=== PATIENT | female | born 1950 | race Caucasian/White ===

== ENCOUNTER 2022-06-19 10:41 | Emergency (ER) | payer OTHER ==
--- OUTSIDE RECORDS SUMMARY | 2022-06-19 10:47 | XMS REPORT | Continuity of Care Document ---
:1950 Author Organization [facility] t Address [address] [facility] [address] [place] [address] Care Team Providers Name Role Phone Curtis Boo MD, [place] Primary Care Physician [phone] MARLIN GARCIA Attending Clinician Unavailable MARLIN GARCIA APRN Attending Clinician Unavailable SHANELLE LEE M.D. Attending Clinician Unavailable MADDI CONCEPCION, P.Kylah Attending Clinician Unavailable PACO MORAN, PMono Attending Clinician Unavailable SONIA GONZALEZ PMono Attending Clinician Unavailable YASMANY MARTINEZ PMono Attending Clinician Unavailable SERGIO MORRISON PMono Attending Clinician Unavailable MARVEL COCHRAN M.D. Attending Clinician Unavailable LESIA CHEN APRN Attending Clinician Unavailable Marvel Cochran Attending Clinician JEY ONOFRE PA-C Attending Clinician Unavailable DEXA, SCAN Attending Clinician Unavailable Maddi Concepcion Attending Clinician Unavailable Esdras Kincaid Attending Clinician Esdras Kincaid Admitting Clinician Problems Condition Condition Condition Status Onset Resolution Last Treating Co mments Source Name Details Category Date Date Treatment Clinician Date OA LE LT OA LE LT Diagnosis Active 2017-022018-05-06 Memoria HAND PAIN HAND PAIN 2-05 12:02:00 l Active 08:00: Oliver 01/20/2018 00 [facility] OA LE LT OA LE LT Diagnosis Active 2017-022018-02-26 Memoria HAND PAIN' HAND PAIN' 0-05 13:06:00 l Active 08:00: Oliver 11/20/2017 00 TI [facility] Z13.820 - Z13.820 - Diagnosis Active 2017-12-20 Memoria ENCOUNTER ENCOUNTER 11-11 15:32:00 l FOR FOR 00:01: Oliver SCREENING SCREENING 00 FOR OS FOR OS Active 11/11/2017 CHANG Oliver RADIAL FX RADIAL FX Diagnosis Active 2017-11-06 Memoria Active 11-05 09:04:00 l 11/05/2017 00:00: Ken[place] kolb [address] FALL FALL Diagnosis Active 2017-11-05 Mem oria Active 11-05 19:22:00 l 11/05/2017 00:00: [place] kolb [address] Decompensa Decompensa Disease Active 2015-02 M ethodi tion of tion of 0-21 st cirrhosis cirrhosis 00:00: [facility] liver of liver 00 l Chronic Chronic Disease Active 2015-02 Methodi hepatitis hepatitis 0-21 st C w/ SVR C w/ SVR 00:00: Hospit a 00 l Portal Portal Disease Active 2015-02 Methodi hypertensi hypertensi 0-[facility] st on on 00:00: Hospita 00 l 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[facility] transplant transplant 0-[facility] , patient , patient 00:00: [facility] on on 00 l transplant transplant list list Osteoporos Osteoporos Problem Active U T is is Physici ans Screening Screening Problem Active [facility] for for Physici endocrine, endocrine, an s metabolic metabolic and and immunity immunity disorder disorder Displ Displ Problem Active UT commnt fx commnt fx Phys ici shaft of shaft of ans rad, l rad, l arm, 7thB arm, 7thB Displ Displ Problem Active UT commnt fx commnt fx Phys ici shaft of shaft of ans ulna, l ulna, l arm, 7thB arm, 7thB Fall from Fall from Problem Active UT ground ground Physici level level ans Compressio Compressio Problem Active U T n fracture n fracture Ph ysici of T12 of T12 ans vertebra, vertebra, initial initial encounter encounter Closed Closed Problem Active UT wedge wedge Physici compressio compressio an s n fracture n fracture of eighth of eighth thoracic thoracic vertebra vertebra with with routine routine healing, healing, subsequent subsequent encounter encounter Closed Closed Problem Active UT wedge wedge Physici compressio compressio an s n fracture n fracture of tenth of tenth thoracic thoracic vertebra vertebra with with routine routine healing, healing, subsequent subsequent encounter encounter History of History of Problem Active U T healed healed Physici osteoporos osteoporos an s is is fracture fracture History of History of Problem Active U T vitamin D vitamin D Phys ici deficiency deficiency an s Medication Medication Problem Active U T monitoring monitoring Ph ysici encounter encounter ans Essential Essential Problem 2018-05-30 Memoria (primary) (primary) 13:00:46 l hypertensi hypertensi He rmann on on 05/30/2018 [facility] Unspecifie Unspecifi Problem 2018-05-30 Memoria d fracture ed 13:00:46 l of lower fracture [place]yon n end of of lower left ulna, end of initial left ulna, encounter initial for open encounter fracture for open type I or fracture II type I or II 05/30/2018 [facility] Fall on Fall on Problem 2018-05-30 Me moria same level same level 13:00:46 l from from Oliver slipping, slipping, tripping tripping and and stumbling stumbling without without subsequent subsequent striking striking against against object, object, initial initial encounter encounter 05/30/2018 [facility] Unspecifie Unspecifi Problem 2018-05-30 Memoria d viral ed viral 13:00:46 l hepatitis hepatitis Herm nelly C without C without hepatic hepatic coma coma 05/30/2018 [facility] Other Other Problem 2018-05-30 Memor ia cirrhosis cirrhosis 13:00:46 l of liver of liver [place] n 05/30/2018 [facility] Vitamin D Vitamin D Problem 2018-05-30 Memoria deficiency deficiency 13:00:46 l , , Oliver unspecifie unspecifie d d 05/30/2018 [facility] Hyperparat Hyperpara Problem 2018-05-30 Memoria hyroidism, thyroidism 13:00:46 l unspecifie , [place]yon n d unspecifie d 05/30/2018 [facility] Acute pain Acute Problem 2018-05-30 M emoria due to pain due 13:00:46 l trauma to trauma Oliver 05/30/2018 [facility] Stiffness Stiffness Problem 2018-05-07 Memoria of left of left 21:43:03 l hand, not hand, not Herm nelly elsewhere elsewhere classified classified 9 MH [facility] [place] Problem 2018-05-07 Mem oria weakness weakness 21:43:03 l (generaliz (generaliz [facility] ed) ed) 05/07/2018 [facility] DISPL DISPL Diagnosis Active 2018-04-12 Mem oria COMMNT FX COMMNT FX 10:27:00 l SHAFT OF SHAFT OF [place] n RAD, L RAD, L ARM, 7TH ARM, 7TH Active [facility] STIFFNESS STIFFNESS Diagnosis Active 2018-04-12 Memoria OF LEFT OF LEFT 10:27:00 l ELBOW, NOT ELBOW, NOT He rmann ELSEWHERE ELSEWHERE C C Active [facility] STIFFNESS STIFFNESS Diagnosis Active 2018-04-12 Memoria OF LEFT OF LEFT 10:27:00 l WRIST, NOT WRIST, NOT He rmann ELSEWHERE ELSEWHERE C C Active [facility] STIFFNESS STIFFNESS Diagnosis Active 2018-04-12 Memoria OF LEFT OF LEFT 10:27:00 l HAND, NOT HAND, NOT Herm nelly ELSEWHERE ELSEWHERE CL CL Active [facility] MUSCLE MUSCLE Diagnosis Active 2018-04-12 Me moria WEAKNESS WEAKNESS 10:27:00 l (GENERALIZ (GENERALIZ [facility] ED) ED) Active [facility] UNSP FX UNSP FX Diagnosis Active 2017-11-06 Memoria SHAFT OF SHAFT OF 09:04:00 l UNSP UNSP Oliver RADIUS, RADIUS, INIT FOR O INIT FOR O Active [facility] Allergies, Adverse Reactions, Alerts Allergy Allergy Status Severity Reaction(s) Onset Inactive Treating Comm ents Source Name Type Date Date Clinician Latex Propensi Active 2015-[address] adverse 00:00: Hospita reaction 00 l s to drug Social History Social Habit Start Date Stop Date Quantity Comments Source Gender identity [facility] Sexual orientation Method [facility] Sex Assigned At [birth year] Met [facility] 00:00:00 00:00:00 Smoking Status Start Date Stop Date Source Tobacco smoking consumption unknown [facility] Social History [facility] Medications Ordered Filled Start Stop Current Ordering Indication Dosage Frequency Signature Comments Components Source Medication Medication Date Date Medication? Clinician (SIG) Name Name Sarah [id number] Rigobertolos 3120 2019-0 Yes MARLIN JOSE QD INJECT 80 UT MCG/1.56ML MCG/1.56ML 4-02 FLOOR HAND MCG Daily Physici Subcutaneou Subcutaneou 00:00: ans s Solution s Solution 00 Pen-injecto Pen-injecto r r traMADol traMADol Yes SERGIO TAKE 1 UT HCl - 50 MG HCl - 50 MG 8-27 MORRISON TABLET Physici Oral Tablet Oral Tablet 00:00: P.A. EVERY 4 TO ans 00 6 HOURS NEEDED. amLODIPine Yes 5mg QD Take 5 mg Me thodi (NORVASC) 5 1-[address] mg tablet 14:39: daily. Hospit a 04 l valsartan Yes 320mg QD Take 320 Met hodi (DIOVAN) 1-[address] 320 MG 14:39: mouth Hospita tablet 04 daily. l tiZANidine Yes 2mg Q8H Take 2-4 Met hodi (ZANAFLEX) 1-[address] 2 MG tablet 14:39: mouth Hospi ta 04 every 8 l (eight) hours as needed for muscle spasms. acetaminoph Yes 1{tbl} Q6H Take 1 Me thodi en-codeine 1-03 tablet by (TYLENOL 14:39: mouth Hospita WITH 04 every 6 l CODEINE #3) (six) 300-30 mg hours as per tablet needed for moderate pain. calcium Yes 1{capsu QD Take 1 Metho di carbonate-v 1-03 le} capsule by itamin D3 14:39: mouth Hospita (CALCIUM 04 daily. l 600 + D,3,) 600 mg calcium- 200 unit capsule albuterol Yes 2{puff} Q6H Inhale 2 M ethodi (PROAIR 1-[address] HFA,PROVENT 14:39: every 6 Hos debbie [place] 04 (six) l HFA,VENTOLI hours as N HFA) 90 needed for mcg/actuati wheezing. on inhaler Acetaminoph Acetaminoph 2017-02 Yes MARVEL 1 Q0.5D TAKE 1 UT en-Codeine en-Codeine 0-01 COCHRAN TABLET Physici #3 300-30 #3 300-30 00:00: M.D. TWICE an s MG Oral MG Oral 00 DAILY Tablet Tablet NEEDED FOR PAIN. traMADol traMADol 2017-02 Yes JEY TAKE 1 UT HCl - 50 MG HCl - 50 MG 0-01 PINKLEY TABLET Physici Oral Tablet Oral Tablet 00:00: PA-C EVERY 4 TO ans 00 6 HOURS NEEDED FOR PAIN. Ergocalcife Yes 50,000 [place] cele rol 24304 11-10 IntlUnit = l UNT Oral 15:51: 1 cap, PO, Her batista Capsule 00 Q7D, # 13 cap, 0 Refill(s) Docusate Yes 100 mg = 1 Mem oria Sodium 100 9-25 cap, PO, l MG Oral 15:51: BID, # 28 Valery nn Capsule 00 cap, 0 Refill(s) Calcium Yes 1 tab, Memoria Carbonate 11-10 CHEW, BID, l 1250 MG / 15:51: # 60 tab, Her batista Cholecalcif 00 0 derek 400 Refill(s) UNT Chewable Tablet Acetaminoph Yes 1 tab, PO, Memoria en 325 MG / 11-10 Q4H, PRN l Hydrocodone 15:51: Pain Score [place] Bitartrate 00 4-6, 0 10 MG Oral Refill(s) Tablet [[place] 10/325] metoprolol Yes 50 mg = 1 Me moria tartrate 50 9-25 tab, PO, l mg oral 15:51: BID, # 60 Valery nn tablet 00 tab, 0 Refill(s) Hydrochloro Yes 1 tab, PO, Memoria thiazide 25 9-25 Daily, # l MG / 15:51: 30 tab, 0 [place] telmisartan 00 Refill(s) 80 MG Oral Tablet [Micard-H CT 80/25] Ergocalcife No Notes: [place] cele rol [id number] 11-09 (Same as: l UNT Oral 14:00: Vitamin D) Her batista Capsule 00 "Do Not Crush" Calcium No Notes: Memoria Carbonate 11-09 (calcium l 1250 MG / 14:00: carbonate- He rmann Cholecalcif 00 vit D derek 400 500mg-400u UNT nit chew Chewable TAB) Same Tablet as: Oscal 500+D Acetaminoph No Notes: Do M emoria en 325 MG / 11-08 not exceed l Hydrocodone 13:18: 4gm/day of Oliver Bitartrate 00 acetaminop 10 MG Oral hen. (Same Tablet as: [place] [[place] 325/10) 10325] Acetaminoph No 1 tab, [place] cele en 325 MG / 11-08 Route: PO, l Hydrocodone 13:17: Drug Form: Oliver Bitartrate 00 TAB, 10 MG Oral Dosing Tablet Weight [[place] 61.818, 10/325] kg, Q6H, PRN Pain Score 4-6, Start date: 11/08/17 8:17:00 CDT, Duration: 30 day, Stop date: 12/08/17 8:16:00 CDT tizanidine No Notes: Memor ia 11-08 (Same As: l 02:00: Zanaflex) Lovenox No Notes: Memoria 11-08 (Same as: l 01:30: Lovenox) NS 1,000 mL No 1,000 mL, M emoria 11-08 Rate: 75 l 00:29: ml/hr, Infuse over: 13.3 hr, Route: IV, Dosing Weight 61.818 kg, Total Volume: 1,000, Start date: 11/07/17 19:29:00 CDT, Duration: 30 day, Stop date: 12/07/17 19:28:00 CDT, 1.64, m2 tizanidine No Notes: Memor ia 11-07 (Same As: l 02:00: Zanaflex) Ancef + No Notes: Memoria sterile 11-06 (Same As: l water 10 mL 23:00: Ancef, Herm Kefzol) MEDICATION WASTE Product Size: 1000 mg Product Wasted: ___ mg Potassium No Notes: Memori a Chloride 11-06 (Same as: l 22:58: K-Dur 20) "Do Not Crush" For patients unable to swallow tablet, dissolve in one half glass of water. Allow about 2 minutes for the tablets to disintegra te. Stir before giving to prepare slurry and administer . Please exclude Patient s with feeding tube less than 14 Amharic (Dobhoff, J-tube etc) and pediatric and patients. With food and full glass of water tramadol No 50 mg, 1 Memor ia hydrochlori 11-06 tab, l de 50 MG 18:23: Route: PO, Her batista Oral Tablet Drug form: TAB, ONCE, Dosing Weight 61.818, kg, Start date: 11/06/17 13:23:00 CDT, Stop date: 11/06/17 13:23:00 CDT gabapentin No Notes: Memor ia 300 MG Oral 11-06 (Same as: l Capsule 18:23: Neurontin) Herm nelly gabapentin No 300 mg, [place] cele 300 MG Oral 11-06 Route: PO, l Capsule 18:21: Drug form: Herm nelly CAP, ONCE, Dosing Weight 61.818, kg, Start date: 11/06/17 13:21:00 CDT, Stop date: 11/06/17 13:21:00 CDT glycopyrrol No Route: IV, Memoria ate (ANES) 11-06 Drug form: l 16:39: INJ, ONCE, Stop date: 11/06/17 11:39:00 CDT neostigmine No Route: IV, Memoria (ANES) 11-06 Drug form: l 16:39: INJ, ONCE, Stop date: 11/06/17 11:39:00 CDT ondansetron No Route: IV, Memoria (ANES) 11-06 Drug form: l 16:34: INJ, ONCE, Stop date: 11/06/17 11:34:00 CDT ePHEDrine No Route: IV, Me moria (ANES) 11-06 Drug form: l 16:29: INJ, ONCE, Stop date: 11/06/17 11:29:00 CDT phenylephri No Route: IV, Memoria ne (ANES) 11-06 Drug form: l 16:14: INJ, ONCE, Stop date: 11/06/17 11:14:00 CDT hydromorpho No Route: IV, Memoria ne (ANES) + 11-06 Drug form: l Premix 14:37: INJ, ONCE, nn Diluent Stop date: Sodium 11/06/17 Chloride 9:37:00 0.9% (ANES) CDT 3 mL labetalol No Route: IV, Me moria (ANES) 11-06 Drug form: l 14:17: INJ, ONCE, Stop date: 11/06/17 9:17:00 CDT Promethazin No Notes: Do M emoria e 11-06 not give l 14:15: IV push. (Same as: Phenergan) Hydromorpho No Notes: [place] clee ne 11-06 Same as l 14:15: Dilaudid Naloxone No Notes: Memoria 11-06 (Same as: l 14:15: Narcan) Flumazenil No Notes: Memor ia 11-06 (Same as: l 14:15: Romazicon) Hydralazine No Notes: [place] cele 11-06 (Same as: l 14:15: Apresoline ) Push over 5 minutes Labetalol No 10 mg, 2 [place] cele 11-06 mL, Route: l 14:15: IVP, Drug form: INJ, Q5Min, Dosing Weight 61.818, kg, PRN Elevated BP, Start date: 11/06/17 9:15:00 CDT, Duration: 5 doses or times, Stop date: Limited # of times Fentanyl No Notes: Memoria 11-06 (Same as: l 14:15: Sublimaze) Preservati ve free. Oxycodone No Notes: Memori a 11-06 (Same as: l 14:15: 'Roxicodon e) Calcium No 1,000 mL, Memor ia Chloride 11-06 Rate: 125 l 0.0014 14:15: ml/hr, MEQ/ML / 00 Infuse Potassium over: 8 Chloride hr, Route: 0.004 IV, Dosing MEQ/ML / Weight Sodium 61.818 kg, Chloride Total 0.103 Volume: MEQ/ML / 1,000, Sodium Start Lactate date: 0.028 11/06/17 MEQ/ML 9:15:00 Injectable CDT, Solution Duration: 1 day, Stop date: 11/07/17 9:14:00 CDT, 1.64, m2 acetaminoph No Route: IV, Memoria en (ANES) 11-06 Drug form: l 10 mg 14:03: INJ, Start [place] n date: 11/06/17 9:03:00 CDT, Stop date: 11/06/17 10:03:00 CDT Docusate No Notes: Memoria 11-06 (Same as: l 14:00: Colace) (Do Not Crush) metoprolol No Notes: Memor ia tartrate 11-06 (Same as: l 14:00: Lopressor) ceFAZolin No Route: IV, Me moria (ANES) 11-06 Drug form: l 13:52: INJ, ONCE, Stop date: 11/06/17 8:52:00 CDT dexmedetomi No Route: IV, Memoria dine (ANES) 11-06 Drug form: l 13:52: INJ, ONCE, Stop date: 11/06/17 8:52:00 CDT propofol No Route: IV, Mem oria (ANES) 11-06 Drug form: l 13:42: INJ, ONCE, Stop date: 11/06/17 8:42:00 CDT rocuronium No Route: IV, M emoria (ANES) 11-06 Drug form: l 13:42: INJ, ONCE, Stop date: 11/06/17 8:42:00 CDT midazolam No Route: IV, Me moria (ANES) 11-06 Drug form: l 13:42: SOLN, [place] 00 ONCE, Stop date: 11/06/17 8:42:00 CDT lidocaine No Route: IV, Me moria (ANES) 11-06 Drug form: l 13:42: INJ, ONCE, Stop date: 11/06/17 8:42:00 CDT fentaNYL No Route: IV, Mem oria (ANES) 11-06 Drug form: l 13:42: INJ, ONCE, Stop date: 11/06/17 8:42:00 CDT dexamethaso No Route: IV, Memoria ne (ANES) 11-06 Drug form: l 13:42: INJ, ONCE, Oliver Stop date: 11/06/17 8:42:00 CDT dexmedetomi No Route: IV, Memoria dine (ANES) 11-06 Drug form: l 200 13:27: INJ, Start [place] microgram 00 date: 11/06/17 8:27:00 CDT, Stop date: 11/06/17 9:27:00 CDT Lactated No Route: IV, Mem oria Ringers 11-06 Total l Injection 12:28: Volume: Valery nn IV (ANES) 00 1,000, 1000 mL Start date: 11/06/17 7:28:00 CDT, Stop date: 11/06/17 8:28:00 CDT Lovenox No Notes: Memoria - (Same as: l 12:00: Lovenox) Lovenox No Notes: Memoria - (Same as: l 07:00: Lovenox) NIFEdipine No Notes: Memor ia 30 mg oral 11-06 (Same as: l tablet, 06:10: Adalat CC, Herm nelly extended 00 Procardia release XL) Give on empty stomach. Take 1 hour before or 2 hours after meal; "Avoid grapefruit and grapefruit juice". Do not crush Hydralazine No Notes: [place] cele 11-06 (Same as: l 05:41: Apresoline ) Push over 5 minutes Furosemide Yes 40 mg = 1 Me moria 40 MG Oral 11-06 tab, PO, l Tablet 05:34: Daily, PRN Valery nn [Lasix] 00 prn LE edema, # 30 tab, 0 Refill(s) 168 HR Yes 1 patch, Memoria Buprenorphi 11-06 TOP, l ne 0.02 05:34: qWeek, # 4 Herm nelly MG/HR 00 patch, 0 Transdermal Refill(s) Patch [BuTrans] CBD oil No CBD oil, Memori a 11-06 0.25 drp, l 05:34: PO, Daily, Refill(s) 0 tizanidine Yes 10 mg, PO, M emoria 11-06 Bedtime, 0 l 05:34: Refill(s) metoprolol No 50 mg = 1 Me moria tartrate 50 11-06 tab, PO, l mg oral 05:34: BID, # 60 Valery nn tablet 00 tab, 0 Refill(s) Hydrochloro No 1 tab, PO, Memoria thiazide 25 11-06 Daily, # l MG / 05:34: 30 tab, 0 telmisartan 00 Refill(s) 80 MG Oral Tablet [Micardis-H CT 80/25] Morphine No Notes: Memoria 11-06 (Same l 05:31: as:MORPhin e Sulfate) Acetaminoph No Notes: [place] cele en 325 MG / 11-06 (Same as: l Hydrocodone 05:31: [place] Valery nn Bitartrate 00 325/5) Do 5 MG Oral not exceed Tablet 4gm/day of acetaminop hen. Acetaminoph No Notes: Do M emoria en 11-06 not exceed l 05:31: 4 gm/day. (Same as: Tylenol) Ondansetron No Notes: [place] cele 11-06 (Same as: l 05:31: Zofran) MEDICATION WASTE Product Size: 4 mg Product Wasted: ___ mg Fentanyl No 50 Memoria 11-06 microgram, l 03:35: Route: IVP, ONCE, Dosing Weight 61.364, kg, Priority: STAT, Start date: 11/05/17 22:35:00 CDT, Stop date: 11/05/17 22:35:00 CDT Hydralazine No 10 mg, [place] cele 11-06 Route: IV, l 02:41: ONCE, Dosing Weight 61.364, kg, Start date: 11/05/17 21:41:00 CDT, Stop date: 11/05/17 21:41:00 CDT Hydrochloro No 1 tab, [place] cele thiazide 25 11-06 Route: PO, l MG / 02:07: Dosing [place] Losartan Weight Potassium 61.364, 100 MG Oral kg, ONCE, Tablet Start date: 11/05/17 21:07:00 CDT, Stop date: 11/05/17 21:07:00 CDT Fentanyl No 50 Memoria 11-06 microgram, l 01:24: Route: [place] 00 IVP, ONCE, Dosing Weight 61.364, kg, Priority: STAT, Start date: 11/05/17 20:24:00 CDT, Stop date: 11/05/17 20:24:00 CDT metoprolol No 50 mg, Memor ia tartrate 11-06 Route: PO, l 01:10: Drug form: [place] 00 TAB, ONCE, Dosing Weight 61.364, kg, Priority: STAT, Start date: 11/05/17 20:10:00 CDT, Stop date: 11/05/17 20:10:00 CDT Hydromorpho No 0.5 mg, Mem oria ne 11-06 Route: l 00:47: IVP, ONCE, Dosing Weight 61.364, kg, Priority: STAT, Start date: 11/05/17 19:47:00 CDT, Stop date: 11/05/17 19:47:00 CDT Ancef No Notes: Memoria 11-06 (Same As: l 00:30: Ancef, Kefzol) MEDICATION WASTE Product Size: 1000 mg Product Wasted: ___ mg Gentamicin No Notes: Memor ia 11-06 TIME l 00:10: CRITICAL MEDICATION (Same as Garamycin) For adult patients only: Round to nearest 10 mg per Medical Staff approval Morphine No Notes: Memoria 11-05 (Same l 23:32: as:MORPhin e Sulfate) Zofran No 4 mg, Memoria 11-05 Route: l 22:42: IVP, Drug form: INJ, ONCE, Dosing Weight 61.364, kg, Priority: STAT, Start date: 11/05/17 17:42:00 CDT, Stop date: 11/05/17 17:42:00 CDT Morphine No 4 mg, Memoria -20 Route: l 22:42: IVP, ONCE, Dosing Weight 61.364, kg, Priority: STAT, Start date: 11/05/17 17:42:00 CDT, Stop date: 11/05/17 17:42:00 CDT Fentanyl No Notes: Memoria 9-20 (Same as: l 22:22: Sublimaze) Preservati ve free. Saline No Notes: Memoria Flush 0.9% -20 (Same as: l 22:13: BD [place] 00 Posiflush) turmeric, Yes QD daily. Method i bulk, 95 % 4-19 st powder 13:16: Hospita 22 l buprenorphi Yes 20ug Q7D Place 20 Me thodi ne 4-[address] (BUTRANS) 13:10: skin once Hos debbie patch 47 a week. l weekly metoprolol Yes 50mg Take 50 mg M ethodi tartrate -[address] (LOPRESSOR) 13:10: Hospit a 50 MG 47 l tablet LACTOBACILL Yes Take by Met hodi US 4-[address] ACIDOPHILUS 13:10: Hospit a ORAL 47 l Vital Signs Vital Name Observation Time Observation Value Comments Source Body height 2020-04-24 11:43:00 59.5 [in_us] [place] [facility] Weight 2020-04-24 11:43:00 160 [lb_av] [facility] Body mass index (BMI) 2020-04-24 11:43:00 31.78 kg/m2 [facility] [Ratio] Temperature Oral (F) 2017-11-10 17:13:00 98.1 F [facility] Heart Rate 2017-11-10 17:13:00 [facility] Respitory Rate 2017-11-10 17:13:00 Memori al [place] Systolic (mm Hg) 2017-11-10 17:13:00 [place] rubio Oliver Diastolic (mm Hg) 2017-11-10 17:13:00 Mem orial [place] Heart Rate 2017-11-10 13:47:00 [facility] [place] Respitory Rate 2017-11-10 13:47:00 Memori al [place] Systolic (mm Hg) 2017-11-10 13:47:00 [place] rial [place] Diastolic (mm Hg) 2017-11-10 13:47:00 Mem orial [place] Temperature Oral (F) 2017-11-10 13:47:00 98.0 F [facility] Temperature Oral (F) 2017-11-10 08:35:00 98 F [facility] Heart Rate 2017-11-10 08:35:00 [facility] [place] Respitory Rate 2017-11-10 08:35:00 Memanamika al [place] Systolic (mm Hg) 2017-11-10 08:35:00 [place] rial [place] Diastolic (mm Hg) 2017-11-10 08:35:00 Mem orial [place] BMI Calculated 2017-11-06 10:56:00 Cristopher hamm [place] Weight 2017-11-06 10:56:00 [facility] Height 2017-11-06 10:56:00 152.4 cm [facility] Weight 2017-11-05 22:07:00 [facility] Procedures Procedure Date / Time Performing Clinician Source Performed [QL] CMP W/EGFR 2020-04-23 00:00:00 [facility] [QL] MAGNESIUM 2020-04-23 00:00:00 [facility] [QL] PHOSPHATE ( 2020-04-23 00:00:00 [facility] PHOSPHORUS) [QL] VITAMIN D, 25-HYDROXY, 2020-04-23 00:00:00 [facility] LC/MS/MS [place] Bone Density Scan [id number] 2019-07-22 00:00:00 [facility] [U] XRAY PELVIS 1 OR 2 VWS 2019-06-10 00:00:00 [facility] [id number] [U] XRAY FEMUR 2 VWS RIGHT 2019-06-10 00:00:00 [facility] [id number] [QH] CALCIUM 2019-03-25 00:00:00 [facility] [H] Procollagen Type I 2019-03-25 00:00:00 [facility] Intact N Terminal Propeptide [H] Procollagen Type I 2019-02-18 00:00:00 [facility] Intact N Terminal Propeptide [QLH] PTH, INTACT (WITHOUT 2019-02-18 00:00:00 [facility] CALCIUM) [Q] VITAMIN D, 25-HYDROXY, 2019-02-18 00:00:00 [facility] LC/MS/MS [QLH] PHOSPHATE ( 2019-02-18 00:00:00 [facility] PHOSPHORUS) [Q] C TELOPEPTIDE (CTX) 2019-02-18 00:00:00 [facility] [QLH] MAGNESIUM 2019-02-18 00:00:00 [facility] [QLH] CMP W/EGFR 2019-02-18 00:00:00 [facility] [U] XRAY PELVIS 1 OR 2 VWS 2019-02-18 00:00:00 [facility] [id number] [U] XRAY FEMUR 2 VWS RIGHT 2019-02-18 00:00:00 [facility] [id number] Physical Therapy 2019-02-02 00:00:00 [facility] [U] XRAY SPINE THORACIC 3 2019 00:00:00 [facility] VWS [id number] [U] XRAY FEMUR 2 VWS RIGHT 2018-12-22 00:00:00 [facility] [id number] [U] XRAY FEMUR 2 VWS RIGHT 2018-12-14 00:00:00 [facility] [id number] [U] XRAY WRIST MIN 3 VWS 2018-10-13 00:00:00 [facility] LEFT [id number] [U] XRAY FEMUR 2 VWS RIGHT 2018-10-08 00:00:00 [facility] [id number] [U] XRAY FEMUR 2 VWS RIGHT 2018-09-15 00:00:00 [facility] [id number] [U] XRAY WRIST MIN 3 VWS 2018-06-25 00:00:00 [facility] LEFT [id number] [U] XRAY WRIST MIN 3 VWS 2018-05-10 00:00:00 [facility] LEFT [id number] [U] XRAY WRIST 2 VWS LEFT 2018-04-01 00:00:00 [facility] [id number] [facility]dominal [facility]rectomy [facility] [place] Anesthesia for total knee Memori al Oliver replacement Cholecystectomy and [facility] exploration of bile duct Plan of Care Planned Activity Planned Date Details Comments Source Future Scheduled 2022-05-22 COVID-[address] Test 00:37:35 (#1) [code = Hospital COVID-19 VACCINE (#1)] Future Scheduled 2022-05-22 COLONOSCOPY Mandaen Test 00:37:35 SCREENING [code = Hospital COLONOSCOPY SCREENING] Future Scheduled 2022-05-22 SHINGLES VACCINES Method ist Test 00:37:35 (1 of 2) [code = Hospital SHINGLES VACCINES (1 of 2)] Future Scheduled 2022-05-22 BREAST CANCER Mandaen Test 00:37:35 SCREENING [code = Hospital BREAST CANCER SCREENING] Future Scheduled 2022-05-22 65+ PNEUMOCOCC[address] Methodi st Test 00:37:35 VACCINE (1 - PCV) Hospital [code = 65+ PNEUMOCOCCAL VACCINE (1 - PCV)] Future Scheduled 2022-05-22 INFLUENZA VACCINE Method ist Test 00:37:35 [code = INFLUENZA Hospital VACCINE] Future Scheduled [QH] CALCIUM [code After [id number] [facility] Test = [QH] CALCIUM] Future Scheduled [H] Procollagen Before 98Mbp2427 [facility] Test Type I Intact N Terminal Propeptide [code = [H] Procollagen Type I Intact N Terminal Propeptide] Future Scheduled [QH] CALCIUM [code After 50Vak7849 [facility] Test = [QH] CALCIUM] Future Scheduled [H] Procollagen Before 96Dnp9861 [facility] Type I Intact N Terminal Propeptide [code = [H] Procollagen Type I Intact N Terminal Propeptide] Future Scheduled [Q] CALCIUM [code = Before next [facility] Test [Q] CALCIUM] appointment Future Scheduled [H] Procollagen Before next [facility] Type I Intact N appointment Terminal Propeptide [code = [H] Procollagen Type I Intact N Terminal Propeptide] Future Scheduled MA Bone Density Before next [facility] Test Scan 85190 [code = appointment 53304] Future Scheduled MA Bone Density Before next [facility] Test Scan 59989 [code = appointment 62154] Encounters Start End Encounter Admission Attending Care Care Encounter Source Date/Time Date/Time Type Type Clinicians Facility Department ID 2020-06-23 Outpatient MARLIN GARCIA [facility] [id number] [place] 02:59:38 Health 2020-04-23 2020-04-23 AppointMARLIN Estevez [facility] [id number] [place] 10:15:00 10:15:00 t; AIDEN GARCIA JUAN PABLO Robles APRN 2019-09-01 2019-09-01 AppointCHELLY Black [facility] [id number] [place] 11:15:00 11:15:00 t; SHANELLE LEE, Physi ci Jm TIMMONS M.D. 2019-07-22 2019-07-22 Ting [facility] [id number] [place] 09:30:00 09:30:00 t; MADDI, Trauma Phy sicrenee [facility], P.A. [facility] MADDIThompson, [place] P[facility]. [facility] 2019-07-22 2019-07-22 AppointMARLIN Estevez [facility] Orthopedics [id number] [place] 09:30:00 09:30:00 t; JOSE ABRAZO [facility] Trauma Physic i MARLIN [facility] 2019-06-24 2019-06-24 Ting [facility] [id number] [place] 12:00:00 12:00:00 t; Faith CONTRERAS, P.A. [facility] MADDI P.A. 2019-06-20 2019-06-20 Appointmarilou [facility] 6 [id number] [place] 09:00:00 09:00:00 t; PACO, - [place] Physi ci DEAN, P.A. [facility] P[facility] 2019-06-16 2019-06-16 Appointmarilou [facility] [id number] [place] 09:30:00 09:30:00 t; SHANELLE LEE, [facility] Physi elian TIMMONS M.D. [facility] ans Jm Cataldo 2019-03-25 2019-03-25 AppointMARLIN Estevez [facility] Orthopedics [id number] [place] 10:00:00 10:00:00 t; AIDEN GARCIA Trauma Physic i MARLIN [facility] 2019-03-03 2019-03-03 Appointmarilou GONZALEZ [facility] Orthopedics [id number] [place] 09:00:00 09:00:00 t; SONIA GONZALEZ, Trauma [facility] SONIA, P.A. [facility] P.A. [facility] 2019-02-18 2019-02-18 AppointMARLIN Estevez [facility] Orthopedics [id number] [place] 10:00:00 10:00:00 t; AIDEN GARCIA Trauma Physic i MARLIN [facility] 2019-02-02 2019-02-02 Appointmarilou MARTINEZ [facility] Orthopedics 5 [id number] [place] 14:40:00 14:40:00 t; gwyn JADE [facility] Mac MARTINEZ [facility] YASMANY, [facility] 2018-12-30 2018-12-30 Appointmarilou GONZALEZ [facility] Orthopedics [id number] [place] 08:30:00 08:30:00 t; SONIA GONZALEZ, Trauma Phy [facility] SCOTT PMono [facility] P.A. [facility] 2018-12-23 2018-12-23 Appointmarilou LEE [facility] Orthopedics [id number] [place] 09:30:00 09:30:00 t; SHANELLE LEE, Trauma Physi ci Jm TIMMONS [facility] Jm [facility] 2018-10-21 2018-10-21 Ting MORRISON [facility] Orthopedics 5 [id number] [place] 09:15:00 09:15:00 t; SERGIO, Trauma Physi ci Mac MORRISON [facility] 2018-10-21 2018-10-21 Appointmarilou COCHRAN [facility] Orthopedics [id number] [place] 09:00:00 09:00:00 t; MARVEL COCHRAN, Trauma Ph patrice FISHER M.D. [facility] beatriz Oneal [facility] 2018-09-30 2018-09-30 Appointmarilou COCHRAN [facility] [id number] [place] 08:00:00 08:00:00 t; MARVEL COCHRAN, Ph Jm Spauldign MShira 2018-09-23 2018-09-23 Appointmarilou CHEN [facility] Orthopedics [id number] [place] 12:00:00 12:00:00 t; AIDEN GRAF Trauma Phys ici GUSTAVO [facility] LESIA FLOOR HAND [facility] 2018-07-01 2018-07-01 Appointmarilou COCHRAN [facility] Orthopedics [id number] [place] 08:00:00 08:00:00 t; MARVEL COCHRAN, Ph Jm Spaulding MShira 2018-05-06 2018-06-05 OP Therapy nullFlavo SMR [id number] Memoria 16:58:00 04:59:00 Patients r Dorian 03 ceci [facility] 2018-05-06 2018-06-04 Outpatient Cochran, 2.16.840. [id number]. 4 [id number] 11:58:00 23:59:00 Marvel [id number] 3.615.51 5.51 2018-05-13 2018-05-13 Ting ONOFRE [facility] Orthopedics 51 [id number] [place] 08:30:00 08:30:00 t; Henny KHANNA PA-C ans ALLYSON, PA-C 2018-04-06 2018-05-06 OP Therapy nullFlavo SMR [id number] Memoria 16:50:00 04:59:00 Patients r Dorian 02 l [facility] 2018-04-06 2018-05-05 Outpatient Cochran, 2.16.840. [id number]. 4 [id number] 10:50:00 23:59:00 Marvel [id number] 02 3.615.51 5.51 2018-04-01 2018-04-01 Tign COCHRAN [facility] Orthopedics [id number] [place] 08:15:00 08:15:00 t; MARVEL COCHRAN, Ph ysici Emil FISHER. beatriz Oneal 2018-02-26 2018-03-28 OP Therapy nullFlavo SMR [id number] Memoria 14:00:00 05:59:00 Patients r Dorian 01 ceci [facility] 2018-02-26 2018-03-27 Outpatient Cochran, 2.16.840. 2.16.840.1. 4 [id number] 08:00:00 23:59:00 Marvel [id number] 5.51 2018-02-18 2018-02-18 Ting ONOFRE [facility] [id number] [place] 08:15:00 08:15:00 t; Henny KHANNA PA-C ans ALLYSON, PA-C 2018-01-21 2018-01-21 Appointmen JEMIMA, UTP UTP [id number] [place] 08:15:00 08:15:00 t; JEY Physi ci REINALDO ONOFRE PA-C 2017-12-24 2017-12-24 Appointmen COCHRAN, UTP UTP [id number] [place] 08:15:00 08:15:00 t; MARVEL COCHRAN, Jm Marinelli M.D. 2017-12-10 2017-12-10 Appointmen JEMIMA, UTP UTP [id number] [place] 08:00:00 08:00:00 t; JEY Physi ci REINALDO ONOFRE PA-C 2017-11-20 2017-11-20 Appointmen REZA, UTP UTP [id number] [place] 13:30:00 13:30:00 t; Faith CONTRERAS, P.ACandy CONTRERAS, P.Kylah 2017-11-19 2017-11-19 Outpatient nullFlavo [facility] [id number] Memoria 13:40:00 13:40:00 r Outpatient 00 l Imaging [facility] 2017-11-19 2017-11-19 Appointmen DIMAS, UTP UTP [id number] [place] 10:15:00 10:15:00 t; MARVEL COCHRAN, Jm Marinelli M.D. 2017-11-19 2017[facility] SCAN UTP UTP [id number] [place] 09:00:00 09:00:00 t; DEXA, Physi ci SCAN [facility] 2017-11-19 2017-11-19 Outpatient Reza [facility] [id number] 08:40:00 08:40:00 Maddi 00 2017-11-05 2017-11-10 Inpatient nullFlavo [facility] [id number] Memoria 22:06:00 18:45:00 r [facility] 2017-11-05 2017-11-10 Outpatient Sanjiv [facility] [id number] 17:06:00 13:45:00 Shifa 00 Results Test Description Test Time Test Comments Results Result Comments Source [QL] [facility] 2020-05-01 09:55:00 Test Item Value Reference Range Interpretation Comme nts MAGNESIUM (test code = MAGNESIUM) 1.8 mg/dl 1.5-2.5 N [facility][QL] PHOSPHATE ( PHOSPHORUS)2020-05-01 09:55:00 Test Item Value Reference Range Interpretation Comments PHOSPHATE ( PHOSPHORUS) (test 4.5 mg/dl 2.1-4.3 code = PHOSPHATE ( PHOSPHORUS)) [facility][QL] CMP [id number] 09:55:00 Test Item Value Reference Range Interpretation Comments GLUCOSE; Normal 91 mg/dl 65-99 N Fasting refe rence (test code = interval 1547-9) UREA NITROGEN 18 mg/dl 7-25 N (BUN) (test code = UREA NITROGEN (BUN)) CREATININE (test 0.79 mg/dl 0.60-0.93 N For patient s >49 years code = of age, the ref erence CREATININE) limitfor Creati nine is approximately 1 3% higher for peopleidentifie d as -María n. eGFR NON-AFR. 76 {ML/MIN/1.7} See_Comment N [Automated message] VINCENTIAN (test The system ich code = eGFR generated this result NON-AFR. transmitted ref erence VINCENTIAN) range: > OR = 6 0. The reference range was not used to int erpret this result as normal/abnormal . eGFR 88 {ML/MIN/1.7} See_Comment N [Automated message] VINCENTIAN (test The system ich code = eGFR generated this result ) transmitte d reference range: > OR = 6 0. The reference range was not used to int erpret this result as normal/abnormal . BUN/CREATININE NOT APPLICABLE 6-22 RATIO (test code = BUN/CREATININE RATIO) SODIUM (test code 144 mmol/L 135-146 N = SODIUM) POTASSIUM (test 4.2 mmol/L 3.5-5.3 N code = POTASSIUM) CHLORIDE (test 105 mmol/L 98-110 N code = CHLORIDE) CARBON DIOXIDE 28 mmol/L 20-32 N (test code = CARBON DIOXIDE) CALCIUM (test 9.8 mg/dl 8.6-10.4 N code = CALCIUM) PROTEIN, TOTAL 7.3 g/dl 6.1-8.1 N (test code = PROTEIN, TOTAL) ALBUMIN (test 4.6 g/dl 3.6-5.1 N code = ALBUMIN) GLOBULIN (test 2.7 {G/DL CALC} 1.9-3.7 N code = GLOBULIN) ALBUMIN/GLOBULIN 1.7 {CALC} 1.0-2.5 N RATIO (test code = ALBUMIN/GLOBULIN RATIO) BILIRUBIN, TOTAL; 0.8 mg/dl 0.2-1.2 N Normal (test code = 23786-5) ALKALINE 92 u/l 37-153 N PHOSPHATASE (test code = ALKALINE PHOSPHATASE) AST; Normal (test 16 u/l 10-35 N code = 1916-6) ALT; Normal (test 7 u/l 6-29 N code = 1742-6) [facility][QL] VITAMIN D, 25-HYDROXY, LC/MS/[id number] 09:55:00 Test Item Value Reference Range Interpretation Comments VITAMIN 13 ng/ml 30-100 Vitamin D Statu s 25-OH D,25-OH,TOTAL,IA Vitamin D: Deficiency: (test code = VITAMIN <20 ng/ mLInsufficiency: D,25-OH,TOTAL,IA) 20 - 29 ng /mLOptimal: > or = 30 ng/mL F or 25-OH Vitamin D testi ng on patients on D2-supplementat ion and patients for wh om quantitation of D2 and D3 fractions is required, the QuestAssureD(TM )25-OH VIT D, (D2,D3), LC/MS/MS is recommended: order code 88246 (pat ients >2yrs).See Note 1 Note 1 For additional information, pl ease refer to http://educatio n.YouMail.ApoVax/f aq/VHZ206 (This link is b eing provided for informational/e ducationa l purposes only .) REPORT COMMENT:FASTING:YESUT PhysiciansMA Bone Density [employer] [id number] 2020-02-22 09:56:00BONE DENSITY ASSESSMENT: 1CLINICAL DATA: M81.0 Age- related osteoporosis without current pathologicalfracture. M81.0 Age-Related Osteoporosis Without Current PathologicalFracture/M81.0 Age-Related Osteoporosis Without Current Pathological FractureRISK FACTORS: race. FINDINGS:Bone density evaluation was performed 02/22/2020 on the right distal radiususing a Hologic unit. The BMD average for the exam is 0.439 g/cm2. The T- scoreis -4.30 and the Z-score is -2.20. This matches the World HealthOrganization's criteria for osteoporosis and places the patient at a high riskfor fracture. Anadditional bone density evaluation was performed 02/22/2020 on the leftfemur neck using a Hologic unit. The BMD average for the exam is 0.643 g/cm2.The T-score is -1.90 and the Z-score is -0.10. This matches the World HealthOrganization's criteria for osteopenia and places the patient at a medium riskfor fracture. An additional bone density evaluation was performed 02/22/2020 on the lefttotal femur area using a Hologic unit. The BMD average for the exam is 0.704 g/cm2. The T-score is -2.00 and the Z-score is -0.50. This matches the WorldHealth Organization's criteria for osteopenia and places the pa tient at amedium risk for fracture. An additional bone density evaluation was performed 02/22/2020 on the AP L1-W0ogpegx of spine using a Hologic unit. The BMD average for the exam is 0.893 g/cm2. The T-score is -1.40 and the Z-score is 0.70. This matches the WorldHealth Organization's criteria for osteopenia and places the patient at amedium risk for fracture. The patient has surgical hardware in the right femur, excluding it fromevaluation.FRAX 10 year probability of major osteoporotic fracture is11% and hip fractureis 1.8%. IMPRESSION: OSTEOPOROSISPatient is at high risk for fracture. This examwas interpreted at [id number] Hodan dong/thea:02/22/2020 11:23:37 Hand Clipper(s): Piper Zhang [facility]--Read by: Hodan Sargent MDDictated Date/time: 02/22/20 11:23Electronically Signed by: Hodan Sargent MD 02/21/2110:23FINAL REPORT[facility][U] XRAY FEMUR 2 VWS RIGHT [id number] 08:52:00Images acquired, not reported on this accession number.[facility][U] XRAY PELVIS 1 OR 2 VWS [id number] 08:52:00Images acquired, not reported on this accession number.[facility][QLH] CMP [id number] 11:11:01 Test Item Value Reference Range Interpretation Comments Sodium Level 142 {mEq/l} 135-145 (test code = 2951-2) Potassium Level 3.9 {mEq/l} 3.5-5.1 (test code = 2823-3) Chloride Level 107 {mEq/l} 95-109 (test code = 2075-0) Carbon Dioxide 29 {mEq/l} 24-32 (test code = 2027-9) AGAP; Below Low 9.9 {mEq/l} 10.0-20.0 Threshold (test code = 08925-3) Glucose Lvl (test 84 mg/dl 70-99 Adult refe rence range code = 2345-7) values reflec t the clinical guidel inesof the [place] Diabet es Association. Creatinine Lvl 0.80 mg/dl 0.50-1.40 (test code = 2160-0) Blood Urea 19 mg/dl 7-22 Nitrogen (test code = 3094-0) BUN/Creatinine 24 6-25 Ratio (test code = 3097-3) Total Protein 7.6 g/dl 6.4-8.4 (test code = 2885-2) Albumin Lvl (test 4.3 g/dl 3.5-5.0 code = 1751-7) Globulin (test 3.3 g/dl 2.7-4.2 code = 50592-3) A/G Ratio (test 1.3 0.7-1.6 code = 1759-0) Calcium Level 9.4 mg/dl 8.5-10.5 Total (test code = 45155-4) ALT (test code = 17 u/l 0-65 1743-4) AST (test code = 22 u/l 0-37 46931-6) Alk Phos (test 127 u/l 39-136 The pediatric reference code = 1783-0) ranges for th is test represent a CLSI-basedtrans ference of the CALIPER jesus abase of pediatric refer ence intervals to [facility] analyzer (Clinical Biochemistry 46 (2013): 7539-6942). [facility] has not internally validated these reference ranges and therefore they should be used only in e context of a thoroughcl inical assessment. Bili Total (test 1.0 mg/dl 0.2-1.3 code = 1975-2) eGFR (test code = 75 The eGFR i s calculated 34333-2) {ML/MIN/1.7} using the CKD-E PI formula. In mos t young, healthyindividu als the eGFR will be >9 0 mL/min/1.73m2. The eGFR declines with a ge. AneGFR of 60-89 may be normal in some population s, particularly e elderly, forwhom the CKD -EPI formula has not been extensively dexter idated. Use of the eGFR isnot recommended in the following populations:Ind ividuals with unstable c reatinine concentrations, including patient s and those with seri ous co-morbid conditions.Karen ents with extremes in mus ta mass or diet.The jesus a above are obtained fr om the National Kidney Disease Education Progr am(NKDEP) which leah olivia recommends that when the eGFR is used in patientswith ex tremes of body mass index for purposes of candida g dosing, the eGFR should be multiplied by t he estimated BMI. [facility][QL] [id number] 11:11:01 Test Item Value Reference Range Interpretation Comments Magnesium Level (test code = 2.3 mg/dl 1.8-2.4 79235-0) [facility][QL] PHOSPHATE ( PHOSPHORUS)2019-02-18 11:11:01 Test Item Value Reference Range Interpretation Comments Phosphorus Level (test code = 4.2 mg/dl 2.5-4.5 2777-1) [facility]] VITAMIN D, 25-HYDROXY, LC/MS/[id number] 11:11:01 Test Item Value Reference Range Interpretation Comments Vitamin D, 25-OH, 31.9 ng/ml 30.0-100.0 Reference range is based Total (test code on recommen dations in the = Vitamin D, EndocrineSociet y Clinical 25-OH, Total) Practice Guide line (J Clin Endocrinol Khryi8636;96:19 111930) [facility][QLH] PTH, INTACT (WITHOUT CALCIUM)2019-02-18 11:11:01 Test Item Value Reference Range Interpretation Comments Parathyroid Hormone Intact (test 53.8 pg/ml 18.4-80.1 code = 2731-8) [facility][H] Procollagen Type I Intact N Terminal [id number] 11:11:01 Test Item Value Reference Range Interpretation Comments Procollagen Type I 81 {UG/L} Premenopa usal 19 - 83 Intact N Terminal Pro Postme nopausal 16 - (test code = 96Performed At: BN Procollagen Type I [facility] B [id number] Intact N [address] [place], Pro) [place] [id number] silvina Altamirano MD Ph:[phone] [facility][H] Misc [id number] 11:00:01 Test Item Value Reference Range Interpretation Comments Misc [facility] (test COMMENT Test Orde red: 005691 code = Misc [facility]) C-Telop eptide, SerumC-Telopept kalina, Serum 548 pg/mL ESRe ference Range:Premenopa usal Women: 34 - 635Postmenopaus al Women: 34 - 1037Perfor med At: HD [facility] [address] [id number] Kyle L MD Ph:[phone] rformed At: ES [facility] [address] [place], [place] [id number] liz Johnson MD Ph:[phone] [facility][U] XRAY SPINE THORACIC 3 VWS [id number] 14:55:00Images acquired, not reported on this accession number.[facility][U] XRAY FEMUR 2 VWS RIGHT [id number] 09:11:00Images acquired, not reported on this accession number.[facility][U] XRAY WRIST MIN 3 VWS LEFT [id number] 09:11:00Images acquired, not reported on this accession number.[facility][U] XRAY WRIST 2 VWS LEFT [id number] 08:24:00Images acquired, not reported on this accession number.[facility]2018-09-24 11:11:00 Test Item Value Reference Range Interpretation Comments Glucose Lvl (test code = Glucose Lvl) 85 70-99 [facility]2018-09-24 11:11:00 Test Item Value Reference Range Interpretation Comments BUN (test code = BUN) 10 7-22 [facility]2018-09-24 11:11:00 Test Item Value Reference Range Interpretation Comments Potassium Lvl (test code = Potassium 3.7 3.5-5.1 Lvl) [facility]2018-09-24 11:11:00 Test Item Value Reference Range Interpretation Comments Sodium Lvl (test code = Sodium Lvl) 141 135-145 [facility]2018-09-24 11:11:00 Test Item Value Reference Range Interpretation Comments Creatinine Lvl (test code = Creatinine 0.54 0.50-1.40 Lvl) [facility]2018-09-24 11:11:00 Test Item Value Reference Range Interpretation Comments Calcium Lvl (test code = Calcium Lvl) 8.8 8.5-10.5 [facility]2018-09-24 11:11:00 Test Item Value Reference Range Interpretation Comments CO2 (test code = CO2) 29 24-32 [facility]2018-09-24 11:11:00 Test Item Value Reference Range Interpretation Comments Chloride Lvl (test code = Chloride Lvl) 107 95-109 [facility]2018-09-24 11:11:00 Test Item Value Reference Range Interpretation Comments AGAP (test code = AGAP) 8.7 10.0-20.0 [facility]2018-09-24 11:11:00 Test Item Value Reference Range Interpretation Comments eGFR (test code = eGFR) 98 [facility]2018-09-23 06:15:00 Test Item Value Reference Range Interpretation Comments Calcium Lvl (test code = Calcium Lvl) 7.9 8.5-10.5 [facility]2018-09-23 06:15:00 Test Item Value Reference Range Interpretation Comments AGAP (test code = AGAP) 19.5 10.0-20.0 [facility]2018-09-23 06:15:00 Test Item Value Reference Range Interpretation Comments Sodium Lvl (test code = Sodium Lvl) 140 135-145 [facility]2018-09-23 06:15:00 Test Item Value Reference Range Interpretation Comments Chloride Lvl (test code = Chloride Lvl) 110 95-109 [facility]2018-09-23 06:15:00 Test Item Value Reference Range Interpretation Comments CO2 (test code = CO2) - [facility]2018-09-23 06:15:00 Test Item Value Reference Range Interpretation Comments Potassium Lvl (test code = Potassium 4.5 3.5-5.1 Lvl) [facility]2018-09-23 06:15:00 Test Item Value Reference Range Interpretation Comments eGFR (test code = eGFR) 85 [facility]2018-09-23 06:15:00 Test Item Value Reference Range Interpretation Comments BUN (test code = BUN) 12 09-06 [facility]2018-09-23 06:15:00 Test Item Value Reference Range Interpretation Comments Glucose Lvl (test code = Glucose Lvl) 89 70-99 [facility]2018-09-23 06:15:00 Test Item Value Reference Range Interpretation Comments Creatinine Lvl (test code = Creatinine 0.73 0.50-1.40 Lvl) [facility]FDA9032[facility]24-25 06:15:00 Test Item Value Reference Range Interpretation Comments Hgb (test code = Hgb) 12.9 12.0-16.0 [facility] HospitalLbsxkimYNXCBEWFHQ2237-65-91 06:15:00 Test Item Value Reference Range Interpretation Comments Hct (test code = Hct) 39.2 36.0-48.0 [facility]ht[facility]abFKZPUKEUMTDX5986-26-81 07:06:00 Test Item Value Reference Range Interpretation Comments Chloride Lvl (test code = Chloride Lvl) 103 95-109 [facility] HospitalIpmgnihAOPSQBSPAEOA6498-13-06 07:06:00 Test Item Value Reference Range Interpretation Comments CO2 (test code = CO2) - [facility] HospitalYskaiilPQMBJPBKDMLU6215-77-45 07:06:00 Test Item Value Reference Range Interpretation Comments AGAP (test code = AGAP) 14.6 10.0-20.0 [facility] Hosp[id number] 07:06:00 Test Item Value Reference Range Interpretation Comments Glucose Lvl (test code = Glucose Lvl) 125 70-99 [facility] HospitalMwmorqjNEJHFXXSQYEP2657-73-54 07:06:00 Test Item Value Reference Range Interpretation Comments BUN (test code = BUN) 11 7-22 [facility] HospitalDcqqnqpTRWIXEVTMBAC5864-96-82 07:06:00 Test Item Value Reference Range Interpretation Comments Creatinine Lvl (test code = Creatinine 1.04 0.50-1.40 Lvl) [facility] HospitalXtyxovgYAHVKOYZZSOM8504-96-45 07:06:00 Test Item Value Reference Range Interpretation Comments Sodium Lvl (test code = Sodium Lvl) 141 135-145 [facility] HospitalLmhgkczJTZVLBNUVNUX2595-18-30 07:06:00 Test Item Value Reference Range Interpretation Comments Potassium Lvl (test code = Potassium 3.6 3.5-5.1 Lvl) [facility] HospitalPptrmxyFZOCDBJYKLBW3531-94-96 07:06:00 Test Item Value Reference Range Interpretation Comments eGFR (test code = eGFR) 56 [facility] HospitalVzswqprQLYLMFHKQHZG7729-31-49 07:06:00 Test Item Value Reference Range Interpretation Comments Calcium Lvl (test code = Calcium Lvl) 8.2 8.5-10.5 [facility] HospitalQwkawziIBKIJGSEXG8971-40-66 07:06:00 Test Item Value Reference Range Interpretation Comments Hgb (test code = Hgb) 13.7 12.0-16.0 [facility] HospitalFgdrmucSZNFRPYMZV8455-82-91 07:06:00 Test Item Value Reference Range Interpretation Comments Hct (test code = Hct) 39.5 36.0-48.0 [facility]2018-09-21 10:56:00 Test Item Value Reference Range Interpretation Comments Vitamin D, 25-OH, Total (test code = 15.3 30.0-100.0 Vitamin D, 25-OH, Total) [facility]2018-09-21 10:56:00 Test Item Value Reference Range Interpretation Comments Globulin (test code = Globulin) 3.5 2.7-4.2 [facility]2018-09-21 10:56:00 Test Item Value Reference Range Interpretation Comments A/G Ratio (test code = A/G Ratio) 1.1 1 0.7-1.6 [facility] [facility] 10:56:00 Test Item Value Reference Range Interpretation Comments ALT (test code = ALT) 16 See_Comment [Auto mated message] The system which ge nerated this result transmit maryann reference range : <=65. The reference range was not used to interpr et this result as yin l/abnormal. [facility]2018-09-21 10:56:00 Test Item Value Reference Range Interpretation Comments AST (test code = AST) 27 See_Comment [Auto mated message] The system which ge nerated this result transmit maryann reference range : <=37. The reference range was not used to interpr et this result as yin l/abnormal. [facility]2018-09-21 10:56:00 Test Item Value Reference Range Interpretation Comments Total Protein (test code = Total 7.5 6.4-8.4 Protein) [facility]2018-09-21 10:56:00 Test Item Value Reference Range Interpretation Comments Bili Total (test code = Bili Total) 1.2 0.2-1.3 [facility]2018-09-21 10:56:00 Test Item Value Reference Range Interpretation Comments Alk Phos (test code = Alk Phos) 108 39-136 [facility]2018-09-21 10:56:00 Test Item Value Reference Range Interpretation Comments Bili Direct (test code 0.3 See_Comment [Aut omated message] The = Bili Direct) system which generated this result tra nsmitted reference range : <=0.3. The reference r elizabeth was not used to int erpret this result as yin l/abnormal. [facility]2018-09-21 10:56:00 Test Item Value Reference Range Interpretation Comments Bili Indirect (test 0.9 See_Comment [Automa maryann message] The code = Bili Indirect) system which generated this result tra nsmitted reference range : <=1.0. The reference r elizabeth was not used to int erpret this result as normal/abnormal . [facility]2018-09-21 10:56:00 Test Item Value Reference Range Interpretation Comments Albumin Lvl (test code = Albumin Lvl) 4.0 3.5-5.0 [facility]2018-09-21 10:56:00 Test Item Value Reference Range Interpretation Comments Magnesium Lvl (test code = Magnesium 2.1 1.8-2.4 Lvl) [facility]2018-09-21 10:56:00 Test Item Value Reference Range Interpretation Comments Phosphorus (test code = Phosphorus) 3.0 2.5-4.5 [facility]CflhlfdKEWMYATJGW6683-38-11 10:56:00 Test Item Value Reference Range Interpretation Comments Hct (test code = Hct) 43.2 36.0-48.0 [facility] HospitalZoionhoHUUADGASYM9829-66-30 10:56:00 Test Item Value Reference Range Interpretation Comments MCH (test code = MCH) 33.4 pg 27.0-31.0 [facility] HospitalPrqbbxoFNEAJNXPXY7628-45-18 10:56:00 Test Item Value Reference Range Interpretation Comments MCV (test code = MCV) 95.4 80.0-98.0 [facility] HospitalXsrpoupTVGYXQNPBJ5242-41-04 10:56:00 Test Item Value Reference Range Interpretation Comments WBC (test code = WBC) 8.0 3.7-10.4 [facility] HospitalHcjchniXKUGUQSMHG5334-02-01 10:56:00 Test Item Value Reference Range Interpretation Comments RBC (test code = RBC) 4.52 4.20-5.40 [facility] HospitalNjwjyjvVPRYSQZFKR9534-81-82 10:56:00 Test Item Value Reference Range Interpretation Comments Hgb (test code = Hgb) 15.1 12.0-16.0 [facility] HospitalDnymxriUEBJICUUZC2397-74-80 10:56:00 Test Item Value Reference Range Interpretation Comments MPV (test code = MPV) 8.2 7.4-10.4 [facility] HospitalCpgsiceZUPQYLXJBR7001-08-67 10:56:00 Test Item Value Reference Range Interpretation Comments RDW (test code = RDW) 12.9 11.5-14.5 [facility] HospitalCdokbhaRFQOBVIOCZ5833-08-07 10:56:00 Test Item Value Reference Range Interpretation Comments MCHC (test code = MCHC) 35.0 32.0-36.0 [facility] HospitalPqigxzfGIRQDFEIFW8321-58-76 10:56:00 Test Item Value Reference Range Interpretation Comments Platelet (test code = Platelet) 160 133-450 [facility] HospitalOtcbiohRNZEWZHZYV5671-32-79 10:56:00 Test Item Value Reference Range Interpretation Comments Monocytes (test code = Monocytes) 6.7 2.0-12.0 [facility] HospitalNngoyxxDSJJKUDYBY0539-67-90 10:56:00 Test Item Value Reference Range Interpretation Comments Segs (test code = Segs) 64.2 45.0-75.0 [facility] HospitalHkniidnQNWGTGAEQB6114-78-40 10:56:00 Test Item Value Reference Range Interpretation Comments Lymphocytes (test code = Lymphocytes) 28.1 20.0-40.0 [facility] HospitalInbtffuZHYQUVKSXQ3245-60-47 10:56:00 Test Item Value Reference Range Interpretation Comments Eosinophils (test code = 0.6 See_Comment [A utomated message] The Eosinophils) system which ge nerated this result tra nsmitted reference range : <=4.0. The reference r elizabeth was not used to int erpret this result as normal/abnormal . [facility] HospitalSxtvbqpIKWFNMQMAH3149-95-46 10:56:00 Test Item Value Reference Range Interpretation Comments Basophils (test code = 0.4 See_Comment [Aut omated message] The Basophils) system which ge nerated this result tra nsmitted reference range : <=1.0. The reference r elizabeth was not used to int erpret this result as normal/abnormal . [facility] HospitalZiywcikMBFOBRNPAT5106-85-63 10:56:00 Test Item Value Reference Range Interpretation Comments Monocytes # (test code 0.5 See_Comment [Aut omated message] The = Monocytes #) system which generated this result tra nsmitted reference range : <=0.8. The reference r elizabeth was not used to int erpret this result as normal/abnormal . [facility] HospitalUkdqhqgJWQNSEKFNQ3386-61-78 10:56:00 Test Item Value Reference Range Interpretation Comments Neutrophils # (test code = Neutrophils 5.1 1.5-8.1 #) [facility] HospitalYaioepnVKVOMXJAOQ7395-15-51 10:56:00 Test Item Value Reference Range Interpretation Comments Lymphocytes # (test code = Lymphocytes 2.2 1.0-5.5 #) [facility] HospitalKiezmgwCZRVRFLIBQ7151-78-16 10:56:00 Test Item Value Reference Range Interpretation Comments INR (test code = INR) 1.17 1 0.85-1.17 [facility] HospitalPkmkduqMBIKCCOTXO5628-39-98 10:56:00 Test Item Value Reference Range Interpretation Comments PT (test code = PT) 15.0 s 12.0-14.7 [facility] HospitalSovrovjWTTAXVBQBA3162-86-06 10:56:00 Test Item Value Reference Range Interpretation Comments PTT (test code = PTT) 28.0 s 22.9-35.8 [facility] [id number] 10:56:00 Test Item Value Reference Range Interpretation Comments PTH Intact (test code = PTH Intact) 104.5 18.4-80.1 [facility] [id number] 10:56:00 Test Item Value Reference Range Interpretation Comments Ca Ion WB (test code = Ca Ion WB) 1.08 1.05-1.25 [facility] XTQKVXM0877-94-41 10:56:00 Test Item Value Reference Range Interpretation Comments Ca Norm WB (test code = Ca Norm WB) 1.08 1.05-1.25 [facility] [id number] 00:56:00 Test Item Value Reference Range Interpretation Comments U Benzodiaz Scr (test Negative *NA*(11/05/17 code = U Benzodiaz Scr) 7:56 PM) [facility] [id number] 00:56:00 Test Item Value Reference Range Interpretation Comments U Yee Scr (test code Negative *NA*(11/05/17 = U Yee Scr) 7:56 PM) [facility] [id number] 00:56:00 Test Item Value Reference Range Interpretation Comments U Opiate Scr (test Positive *ABN*(11/05/17 code = U Opiate Scr) 7:56 PM) [facility] [id number] 00:56:00 Test Item Value Reference Range Interpretation Comments U Phencyclidine Scr (test Negative code = U Phencyclidine *NA*(11/05/17 7:56 Scr) PM) [facility] [id number] 00:56:00 Test Item Value Reference Range Interpretation Comments U Cannab Scr (test Positive *ABN*(11/05/17 code = U Cannab Scr) 7:56 PM) [facility] SVSGGO0314-29-02 00:56:00 Test Item Value Reference Range Interpretation Comments U Cocaine Scr (test Negative *NA*(11/05/17 code = U Cocaine Scr) 7:56 PM) [facility] [id number] 00:56:00 Test Item Value Reference Range Interpretation Comments U Amph Scr (test code Negative *NA*(11/05/17 = U Amph Scr) 7:56 PM) [facility] [id number] 00:56:00 Test Item Value Reference Range Interpretation Comments UDS Note (test code = See Note (11/05/17 7:56 UDS Note) PM) [facility] [id number] 00:56:00 Test Item Value Reference Range Interpretation Comments UA WBC (test code = UA None Seen (11/05/17 7:56 WBC) PM) [facility] [id number] 00:56:00 Test Item Value Reference Range Interpretation Comments UA Sq Epi (test code = UA Sq Epi) Rare /LPF [facility] [id number] 00:56:00 Test Item Value Reference Range Interpretation Comments UA RBC (test code = 0-2 /HPF See_Comment [Automa maryann message] The UA RBC) system which ge nerated this result tra nsmitted reference range : <=2. The reference range was not used to interpr et this result as yin l/abnormal. [facility] [id number] 00:56:00 Test Item Value Reference Range Interpretation Comments UA Blood (test code = Negative (11/05/17 7:56 UA Blood) PM) [facility] [id number] 00:56:00 Test Item Value Reference Range Interpretation Comments UA Leuk Est (test Negative (11/05/17 7:56 code = UA Leuk Est) PM) [facility] [id number] 00:56:00 Test Item Value Reference Range Interpretation Comments UA Urobilinogen (test code = UA 0.2 0.1-1.0 Urobilinogen) [facility] [id number] 00:56:00 Test Item Value Reference Range Interpretation Comments UA Nitrite (test code Negative (11/05/17 7:56 = UA Nitrite) PM) [facility] [id number] 00:56:00 Test Item Value Reference Range Interpretation Comments UA Bili (test code = Negative *NA*(11/05/17 UA Bili) 7:56 PM) [facility] [id number] 00:56:00 Test Item Value Reference Range Interpretation Comments UA Glucose (test code = UA Negative mg/dL Glucose) [facility] [id number] 00:56:00 Test Item Value Reference Range Interpretation Comments UA Ketones (test code = UA Negative mg/dL Ketones) [facility] AND [id number] 00:56:00 Test Item Value Reference Range Interpretation Comments UA Spec Grav (test code = UA Spec 1.015 1 Grav) [facility] AND [id number] 00:56:00 Test Item Value Reference Range Interpretation Comments UA pH (test code = UA pH) 7.0 1 5.0-8.0 [facility] AND [id number] 00:56:00 Test Item Value Reference Range Interpretation Comments UA Color (test code = Yellow *NA*(11/05/17 UA Color) 7:56 PM) [facility] AND [id number] 00:56:00 Test Item Value Reference Range Interpretation Comments UA Turbidity (test code = Clear (11/05/17 7:56 UA Turbidity) PM) [facility] AND [id number] 00:56:00 Test Item Value Reference Range Interpretation Comments UA Protein (test code = UA Negative mg/dL Protein) [facility] [id number] 22:18:00 Test Item Value Reference Range Interpretation Comments Lactic Acid Lvl (test code = Lactic 1.5 0.5-2.2 Acid Lvl) [facility] HospitalSuavjdzYRSCSMTVLITVD1570-02-24 22:18:00 Test Item Value Reference Range Interpretation Comments S Preg (test code = S Negative *NA*(11/05/17 Preg) 5:18 PM) [facility] 22:18:00 Test Item Value Reference Range Interpretation Comments Eosinophils # (test code 0.2 See_Comment [A utomated message] The = Eosinophils #) system whic h generated this result tra nsmitted reference range : <=0.5. The reference r elizabeth was not used to int erpret this result as normal/abnormal . [facility] HospitalGfyiovbXRWXEUHYWC4114-93-82 22:18:00 Test Item Value Reference Range Interpretation Comments Monocytes # (test code 0.4 See_Comment [Aut omated message] The = Monocytes #) system which generated this result tra nsmitted reference range : <=0.8. The reference r elizabeth was not used to int erpret this result as normal/abnormal . [facility] HospitalSipmflrOGVEJDPLZK6863-69-12 22:18:00 Test Item Value Reference Range Interpretation Comments Lymphocytes # (test code = Lymphocytes 2.9 1.0-5.5 #) [facility] HospitalElohatpHEUOETFKLL4196-45-97 22:18:00 Test Item Value Reference Range Interpretation Comments Neutrophils # (test code = Neutrophils 3.1 1.5-8.1 #) [facility] Hospit[id number] 22:18:00 Test Item Value Reference Range Interpretation Comments Eosinophils (test code = 2.5 See_Comment [A utomated message] The Eosinophils) system which ge nerated this result tra nsmitted reference range : <=4.0. The reference r elizabeth was not used to int erpret this result as normal/abnormal . [facility] HospitalXjeztqmJEIFXSPUET4860-87-39 22:18:00 Test Item Value Reference Range Interpretation Comments Basophils (test code = 0.5 See_Comment [Aut omated message] The Basophils) system which ge nerated this result tra nsmitted reference range : <=1.0. The reference r elizabeth was not used to int erpret this result as normal/abnormal . [facility] HospitalLsdtslgDYFDPLURNS0220-03-52 22:18:00 Test Item Value Reference Range Interpretation Comments Monocytes (test code = Monocytes) 6.4 2.0-12.0 [facility] HospitalPzehwjhKVWCIRGYZM1791-27-80 22:18:00 Test Item Value Reference Range Interpretation Comments Segs (test code = Segs) 46.7 45.0-75.0 [facility] HospitalNnohpqwUDRYJVHKXL7908-29-68 22:18:00 Test Item Value Reference Range Interpretation Comments Lymphocytes (test code = Lymphocytes) 43.9 20.0-40.0 [facility] HospitalZroxizvCCUVUSXDXS6857-12-37 22:18:00 Test Item Value Reference Range Interpretation Comments R-time Rapid (test code = R-time 0.7 min 0.4-0.7 Rapid) [facility] HospitalXvajhxxWUJRPXUCYF0232-33-05 22:18:00 Test Item Value Reference Range Interpretation Comments Max Amplitude Rapid (test code = Max 51 mm 52-71 Amplitude Rapid) [facility] HospitalZdulyweOHJCSRMGPI0909-65-37 22:18:00 Test Item Value Reference Range Interpretation Comments Angle Rapid (test code = Angle 68 degrees 64-80 Rapid) [facility] HospitalJiaaoppDMPGWNAUYL5557-50-94 22:18:00 Test Item Value Reference Range Interpretation Comments K-time Rapid (test code = K-time 2.3 min 0.6-2.3 Rapid) [facility] HospitalTrhnrmgJYACTHUACL6869-12-38 22:18:00 Test Item Value Reference Range Interpretation Comments Estimated % Lysis Rapid 0.0 See_Comment [Au tomated message] The (test code = Estimated syste m which generated % Lysis Rapid) this result t ransmitted reference range : <=7.5. The reference r elizabeth was not used to int erpret this result as normal/abnormal . [facility] HospitalYzswmggAFGNBAVGBJ1504-28-80 22:18:00 Test Item Value Reference Range Interpretation Comments G-value Rapid (test code = G-value 5.2 5.0-11.6 Rapid) [facility] HospitalHqykbbrCXUDSJJYVJ8225-00-66 22:18:00 Test Item Value Reference Range Interpretation Comments Split Point Rapid (test code = Split 0.5 min Point Rapid) [facility] HospitalGmdvitaLQQUXBHMFP3049-71-85 22:18:00 Test Item Value Reference Range Interpretation Comments ACT (TEG) Rapid (test code = ACT (TEG) 113 s 86-118 Rapid) [facility] HospitalUxmskrkINUBHUBBVZ2872-87-95 22:18:00 Test Item Value Reference Range Interpretation Comments WBC (test code = WBC) 6.6 3.7-10.4 [facility] HospitalLphlxtuGBEHNSROSU9807-89-20 22:18:00 Test Item Value Reference Range Interpretation Comments Platelet (test code = Platelet) 152 133-450 [facility] HospitalUrjuzupAFYQYAAGSU9738-83-29 22:18:00 Test Item Value Reference Range Interpretation Comments MPV (test code = MPV) 8.0 7.4-10.4 [facility] HospitalCqoeqroVDXSEHQYTB5566-31-06 22:18:00 Test Item Value Reference Range Interpretation Comments MCH (test code = MCH) 33.2 pg 27.0-31.0 [facility] HospitalMbodzjjRFXZEQWUSP2117-23-06 22:18:00 Test Item Value Reference Range Interpretation Comments MCHC (test code = MCHC) 34.5 32.0-36.0 [facility] HospitalThlujnyUNUKVIIPNS8681-53-36 22:18:00 Test Item Value Reference Range Interpretation Comments RDW (test code = RDW) 13.0 11.5-14.5 [facility]epDZZSKDXNXV7905[facility]-12 22:18:00 Test Item Value Reference Range Interpretation Comments MCV (test code = MCV) 96.2 80.0-98.0 [facility]SflsakhSACOXJAZJQ8576-64-87 22:18:00 Test Item Value Reference Range Interpretation Comments RBC (test code = RBC) 4.55 4.20-5.40 [facility] HospitalWnlgfnaDFKZIAKEQW3553-99-77 22:18:00 Test Item Value Reference Range Interpretation Comments Ethanol Lvl (test code = Ethanol <3.0 mg/dL Lvl) [place] [id number] 22:18:00 Test Item Value Reference Range Interpretation Comments Etoh (%) (test code = Etoh (%)) <0.003 % [facility] HospitalZomazz HOPIABO2516-25-14 22:14:00 Test Item Value Reference Range Interpretation Comments ABO/Rh (test code = ABO/Rh) O POS [facility] HospitalBillfish Software [id number] 22:14:00 Test Item Value Reference Range Interpretation Comments Antibody Scrn (test Negative (11/05/17 5:14 code = Antibody Scrn) PM) [facility]
--- NOTE | 2022-06-19 11:50 | RAD REPORT ---
EXAM DESCRIPTION: CT - Head C Spine Cap Wo Con - 06/19/2022 11:28 am CLINICAL HISTORY: Head and neck injury with chest and abdominal pain status post fall TECHNIQUE: Computed axial tomography of head, neck, chest, abdomen and pelvis obtained. IV and oral contrast not requested. Coronal and sagittal reconstruction performed. All CT scans are performed using dose optimization technique as appropriate and may include automated exposure control or mA/KV adjustment according to patient size. COMPARISON: None FINDINGS: An intracranial bleed is not seen. The ventricles are normal in caliber. An extra-axial fluid collection is not noted. . Fluid within the sinuses/mastoids is not seen. A cervical fracture is not seen. No dislocation is noted. The evaluation of mediastinum, valdemar, vessels, solid organs and bowel are limited secondary to the lac k of contrast administration. A mediastinal hematoma is not noted. A pleural effusion is not seen. A lung contusion is not present. The liver,spleen, pancreas, adrenals,kidneys and bladder do not demonstrate an acute traumatic injury Mild chronic compression deformity T12 vertebral body. Postsurgical changes right hip Small moderate umbilical hernia. Cirrhotic liver IMPRESSION: No acute intracranial abnormality is seen. A cervical fracture is not visualized. If the patient continues have symptoms to suggest intracrania l/spinal cord pathology MRI be recommended No acute traumatic abnormality involving the chest/abdomen/pelvis.
--- NOTE | 2022-06-19 11:59 | RAD REPORT ---
EXAM DESCRIPTION: RAD - Shoulder Right 2 View - 06/19/2022 11:54 am CLINICAL HISTORY: Right shoulder pain FINDINGS: No fracture or dislocation is seen.
--- NOTE | 2022-06-19 12:01 | RAD REPORT ---
EXAM DESCRIPTION: RAD - Hip Right 2 View - 06/19/2022 11:53 am CLINICAL HISTORY: Right hip pain FINDINGS: Compression screw and intramedullary brayden affix an old femoral fracture. No acute fracture or dislocation Moderate osteoarthritis right hip Areas of sclerosis within the femoral head may indicate avascular necrosis
--- NOTE | 2022-06-19 12:02 | RAD REPORT ---
EXAM DESCRIPTION: RAD - Ankle Right 3 View - 06/19/2022 11:53 am CLINICAL HISTORY: Right ankle pain FINDINGS: No fracture or dislocation is seen.
--- NOTE | 2022-06-19 12:25 | RAD REPORT ---
EXAM DESCRIPTION: RAD - Knee Right 3 View - 06/19/2022 11:53 am CLINICAL HISTORY: Right knee pain status post injury FINDINGS: Intramedullary brayden within the femur There appears to be a small to moderate joint effusion Bones are osteoporotic. Cortical irregularity lateral tibial plateau. Given the suspected joint effusion and history of traum a this may represent a subtle fracture. If clinically indicated further evaluation with CT could be o btained
--- NOTE | 2022-06-19 12:27 | RAD REPORT ---
EXAM DESCRIPTION: RAD - Wrist Right 3 View - 06/19/2022 11:59 am CLINICAL HISTORY: Right wrist pain status post injury FINDINGS: Bones are osteoporotic . Bony density posterior ribs has a sclerotic border and presumably is chronic. No dislocation If the patient continues to have symptoms to suggest an occult fracture then MRI or CT would be recom mended
[2022-06-19] MEDS ORDERED: PROMETHAZINE INJ 25 MG/ML AMP ONE (13:19)
[2022-06-19] MEDS ORDERED: HYDROMORPHONE HCL 2 MG/ML inj ONE (13:20)
--- NOTE | 2022-06-19 13:43 | RAD REPORT ---
EXAM DESCRIPTION: CT - Knee Right Wo Cont - 06/19/2022 1:23 pm CLINICAL HISTORY: fall COMPARISON: No comparisons FINDINGS: Intramedullary brayden is seen distal femur. Tricompartmental osteoarthritis is present. There is a moderate to large joint effusion. Cortical step-off is present involving the lateral tibial palomo teau with 1-2 mm of depression likely lateral tibial plateau fracture. IMPRESSION: Mildly depressed lateral tibial plateau fracture with moderate joint effusion noted. All CT scans are performed using dose optimization technique as appropriate and may include automated exposure control or mA/KV adjustment according to patient size.
--- NOTE | 2022-06-19 13:51 | ER ---
Nurse's Notes [facility] Name: Ammy Delgado Age: 72 yrs Sex: Female : 1950 Arrival Date: 06/19/2022 Time: 10:41 Bed 6 Private MD: Diagnosis: Fall on same level, unspecified;Other specified sprain of right wrist;Effusion, right knee;Pain in right knee;Unspecified cirrhosis of liver;Displaced bicondylar fracture of right tibia, initial encounter for closed fracture-mildly depressed Presentation: 06/19 11:05 Chief complaint: Patient states: "I was picking up a 5 gallon full of dirt and I ended aa5 up losing my balance and I fell onto my right side". Pt c/o pain to right ankle, right knee, right hip, right elbow, right shoulder, and right side of head. Denies LOC. 11:05 Coronavirus screen: At this time, the client does not indicate any symptoms associated aa5 with coronavirus-19. Ebola Screen: Patient denies travel to an Ebola-affected area in the 21 days before illness onset. Initial Sepsis Screen: Does the patient meet any 2 criteria? No. Patient's initial sepsis screen is negative. Does the patient have a suspected source of infection? No. Patient's initial sepsis screen is negative. Risk Assessment: Do you want to hurt yourself or someone else? Patient reports no desire to harm self or others. Onset of symptoms was June 18, 2022. 11:05 Method Of Arrival: Wheelchair aa5 11:05 Acuity: NOE 3 aa5 Historical: - Allergies: 11:06 No Known Allergies; aa5 - Home Meds: 11:08 valsartan 160 mg oral tablet 2 times per day [Active]; metoprolol tartrate 50 mg Oral aa5 tablet 2 times per day [Active]; tizanidine 2 mg oral tablet 2 times per day [Active]; 11:10 buprenorphine patch every 7 days [Active]; aa5 - PMHx: 11:06 Brain Bleed; Hypertensive disorder; Cirrhosis of liver; Osteopenia; aa5 - PSHx: 11:06 Right femur with brayden; left arm with metal plate; left knee replacement; aa5 - Immunization history:: Adult Immunizations unknown. - Social history:: Smoking status: Patient denies any tobacco usage or history of. Screenin:00 [facility] ED Fall Risk Assessment (Adult) History of falling in the last 3 months, ko1 including since admission Yes- single mechanical fall (1 pt) Confusion or Disorientation No (0 pts) Intoxicated or Sedated No (0 pts) Impaired Gait No (0 pts) Mobility Assist Device Used No (0 pt) Altered Elimination No (0 pt) Score/Fall Risk Level 0 - 2 = Low Risk Oriented to surroundings, Maintained a safe environment, Educated pt \\T\\ family on fall prevention, incl call for assistance when getting out of bed, Assessed \\T\\ reinforced patient's understanding of fall precautions, Provided non-skid footwear, Hourly rounding (assess needs \\T\\ fall precautionary measures) done, Used ambulatory aids as needed (educated on \\T\\ assisted with), Used gait belt as appropriate. Abuse screen: Denies threats or abuse. Denies injuries from another. Nutritional screening: No deficits noted. Tuberculosis screening: No symptoms or risk factors identified. Assessment: 12:00 General: Appears in no apparent distress. uncomfortable, Behavior is calm, cooperative, ko1 appropriate for age. Pain:. Neuro: No deficits noted. Cardiovascular: No deficits noted. Respiratory: No deficits noted. GI: No deficits noted. : No deficits noted. EENT: No deficits noted. Derm: No deficits noted. 12:00 Musculoskeletal: Reports pain in right arm and right ankle. ko1 12:28 Reassessment: Patient appears in no apparent distress at this time. No changes from ld1 previously documented assessment. Patient and/or family updated on plan of care and expected duration. Pain level reassessed. Patient is alert, oriented x 3, equal unlabored respirations, skin warm/dry/pink. Pain: Complains of pain in right arm, right leg and neck and right ankle. Vital Signs: 11:05 BP 220 / 110 (man/); Pulse 67; Resp 16 S; Temp 97.3(TE); Pulse Ox 96% on R/A; Weight aa5 72.57 kg (R); Height 4 ft. 11 in. (R); 12:31 BP 194 / 75; Pulse 75; Resp 18; Pulse Ox 99% on R/A; ko1 13:33 BP 188 / 111; Pulse 85; Resp 18; Pulse Ox 99% on R/A; ld1 11:05 Body Mass Index 32.31 (72.57 kg, 149.86 cm) aa5 ED Course: 10:57 Patient arrived in ED. aa5 11:05 Arm band placed on. aa5 11:08 Triage completed. aa5 11:10 Lio Smith MD is Attending Physician. rn 11:10 Attending Physician role handed off by Lio Smith MD [facility] 11:10 Thaddeus Cook MD is Attending Physician. zachariah 11:29 CT Traumagram (Head C Spine CAP wo con) In Process Unspecified. EDMS 11:55 Knee Right 3 View XRAY In Process Unspecified. EDMS 11:55 Ankle Right 3 View XRAY In Process Unspecified. EDMS 11:55 Hip Right 2 View XRAY In Process Unspecified. EDMS 11:55 Shoulder Right (2 View) XRAY In Process Unspecified. EDMS 12:00 Patient has correct armband on for positive identification. Fall risk band placed. Bed ko1 in low position. Call light in reach. Side rails up X2. Pulse ox on. NIBP on. Door closed. Noise minimized. Lights dimmed. Warm blanket given. 12:00 No provider procedures requiring assistance completed. ko1 12:01 Wrist Right 3 View In Process Unspecified. EDMS 12:11 Elen Shepherd, RN is Primary Nurse. ko1 13:25 Knee Right Wo Cont In Process Unspecified. EDMS 13:47 Remi Carcamo MD is Referral Physician. [facility] 14:38 Patient did not have IV access during this emergency room visit. ko1 Administered Medications: 13:16 Drug: HYDROmorphone IM 2 mg Route: IM; Site: left deltoid; ld1 13:16 Drug: Promethazine IM 25 mg Route: IM; Site: left deltoid; ld1 Medication: 14:38 VIS not applicable for this client. ko1 Outcome: 13:51 Discharge ordered by . zachariah 14:38 Discharged to home via wheelchair, with family. ko1 14:38 Condition: stable 14:38 Discharge instructions given to patient, Instructed on discharge instructions, follow up and referral plans. medication usage, Demonstrated understanding of instructions, follow-up care, medications, splint care, Prescriptions given X 1. 14:39 Patient left the ED. ko1 Signatures: Dispatcher [employer] EDMS Thaddeus Cook MD MD cha Nieto, Lio, MD MD rn Ruiz, Maxine, RN RN aa5 Kia Jones RN RN ld1 Elen Shepherd RN RN ko1 Corrections: (The following items were deleted from the chart) 11:15 11:05 Pulse 67bpm; Resp 16bpm; Spontaneous; Pulse Ox 96% RA; Temp 97.3F Temporal; 72.57 aa5 kg Reported; Height 4 ft. 11 in. Reported; BMI: 32.3; aa5 11:15 11:05 Acuity: NOE 4 aa5 aa5
--- NOTE | 2022-06-19 13:51 | EDPHYS ---
Physician Documentation [facility] Name: Ammy Delgado Age: 72 yrs Sex: Female : 1950 Arrival Date: 06/19/2022 Time: 10:41 Bed 6 Private MD: ED Physician Thaddeus Cook HPI: 06/19 13:10 This 72 yrs old Female presents to ER via Wheelchair with complaints of Fall zachariah Injury. 13:10 Details of fall: The patient fell from an upright position, while walking. Onset: The zachariah symptoms/episode began/occurred just prior to arrival. Associated injuries: The patient sustained right leg, decreased range of motion, painful injury, swelling. Severity of symptoms: At their worst the symptoms were moderate, in the emergency department the symptoms are unchanged. The patient has not experienced similar symptoms in the past. Historical: - Allergies: 11:06 No Known Allergies; aa5 - Home Meds: 11:08 valsartan 160 mg oral tablet 2 times per day [Active]; metoprolol tartrate 50 mg Oral aa5 tablet 2 times per day [Active]; tizanidine 2 mg oral tablet 2 times per day [Active]; 11:10 buprenorphine patch every 7 days [Active]; aa5 - PMHx: 11:06 Brain Bleed; Hypertensive disorder; Cirrhosis of liver; Osteopenia; aa5 - PSHx: 11:06 Right femur with brayden; left arm with metal plate; left knee replacement; aa5 - Immunization history:: Adult Immunizations unknown. - Social history:: Smoking status: Patient denies any tobacco usage or history of. ROS: 13:14 Constitutional: Negative for fever, chills, and weight loss, Eyes: Negative for injury, zachariah pain, redness, and discharge, ENT: Negative for injury, pain, and discharge, Neck: Negative for injury, pain, and swelling, Cardiovascular: Negative for chest pain, palpitations, and edema, Respiratory: Negative for shortness of breath, cough, wheezing, and pleuritic chest pain, Abdomen/GI: Negative for abdominal pain, nausea, vomiting, diarrhea, and constipation, Back: Negative for injury and pain, : Negative for injury, bleeding, discharge, and swelling, Skin: Negative for injury, rash, and discoloration, Neuro: Negative for headache, weakness, numbness, tingling, and seizure, Psych: Negative for depression, anxiety, suicide ideation, homicidal ideation, and hallucinations, Allergy/Immunology: Negative for hives, rash, and allergies, Endocrine: Negative for neck swelling, polydipsia, polyuria, polyphagia, and marked weight changes. 13:14 MS/extremity: Positive for decreased range of motion, pain, swelling, tenderness, of the lateral aspect of right knee, posterior aspect of right knee, medial aspect of right knee and right knee. Exam: 13:14 Constitutional: This is a well developed, well nourished patient who is awake, alert, zachariah and in no acute distress. Head/Face: Normocephalic, atraumatic. Eyes: Pupils equal round and reactive to light, extra-ocular motions intact. Lids and lashes normal. Conjunctiva and sclera are non-icteric and not injected. Cornea within normal limits. Periorbital areas with no swelling, redness, or edema. ENT: Nares patent. No nasal discharge, no septal abnormalities noted. Tympanic membranes are normal and external auditory canals are clear. Oropharynx with no redness, swelling, or masses, exudates, or evidence of obstruction, uvula midline. Mucous membranes moist. Neck: Trachea midline, no thyromegaly or masses palpated, and no cervical lymphadenopathy. Supple, full range of motion without nuchal rigidity, or vertebral point tenderness. No Meningismus. Chest/axilla: Normal chest wall appearance and motion. Nontender with no deformity. No lesions are appreciated. Cardiovascular: Regular rate and rhythm with a normal S1 and S2. No gallops, murmurs, or rubs. Normal PMI, no JVD. No pulse deficits. Respiratory: Lungs have equal breath sounds bilaterally, clear to auscultation and percussion. No rales, rhonchi or wheezes noted. No increased work of breathing, no retractions or nasal flaring. Abdomen/GI: Soft, non-tender, with normal bowel sounds. No distension or tympany. No guarding or rebound. No evidence of tenderness throughout. Back: No spinal tenderness. No costovertebral tenderness. Full range of motion. Female : Normal external genitalia. Skin: Warm, dry with normal turgor. Normal color with no rashes, no lesions, and no evidence of cellulitis. Neuro: Awake and alert, GCS 15, oriented to person, place, time, and situation. Cranial nerves II-XII grossly intact. Motor strength 5/5 in all extremities. Sensory grossly intact. Cerebellar exam normal. Normal gait. Psych: Awake, alert, with orientation to person, place and time. Behavior, mood, and affect are within normal limits. 13:14 Musculoskeletal/extremity: ROM: limited active range of motion, limited passive range of motion, limited active range of motion due to pain, limited passive range of motion due to pain, Circulation is intact in all extremities. Sensation intact. Compartment Syndrome exam of affected extremity: is normal. Weight bearing: is unable to bear weight. 13:14 Skin: Appearance: Color: normal in color, Temperature: normal temperature, Moisture: normal moisture, petechiae, not noted, ecchymosis, not noted, flushing, not noted, diaphoresis is not appreciated. Vital Signs: 11:05 BP 220 / 110 (man/); Pulse 67; Resp 16 S; Temp 97.3(TE); Pulse Ox 96% on R/A; Weight aa5 72.57 kg (R); Height 4 ft. 11 in. (R); 12:31 BP 194 / 75; Pulse 75; Resp 18; Pulse Ox 99% on R/A; ko1 13:33 BP 188 / 111; Pulse 85; Resp 18; Pulse Ox 99% on R/A; ld1 11:05 Body Mass Index 32.31 (72.57 kg, 149.86 cm) aa5 MDM: 11:10 Patient medically screened. [facility] 13:16 Differential diagnosis: closed fracture, contusion, tendonitis. Differential diagnosis: [facility] closed head injury, contusion, fracture, multiple trauma, sprain, strain. Data reviewed: vital signs, nurses notes, radiologic studies, CT scan, plain films. Consideration of Admission/Observation Escalation of care including admission/observation considered. I considered the following discharge prescriptions or medication management in the emergency department Medications were administered in the Emergency Department. See MAR. Test considered but Not performed: Labs: no labs. Care significantly affected by the following chronic conditions: Hypertension, cirrhosis,brain hemorrhage. 06/19 11:14 Order name: Knee Right 3 View XRAY; Complete Time: 13:03 [facility] 06/19 11:14 Order name: Ankle Right 3 View XRAY; Complete Time: 13:03 [facility] 06/19 11:14 Order name: Hip Right 2 View XRAY; Complete Time: 13:03 zachariah 06/19 11:14 Order name: Shoulder Right (2 View) XRAY; Complete Time: 13:03 zachariah 06/19 11:14 Order name: CT Traumagram (Head C Spine CAP wo con); Complete Time: 13:03 zachariah 06/19 11:38 Order name: Wrist Right 3 View; Complete Time: 13:03 [facility] 06/19 13:09 Order name: Knee Right Wo Cont; Complete Time: 13:46 [facility] 06/19 11:14 Order name: Wound Care; Complete Time: 12:22 zachariah 06/19 11:14 Order name: Ice pack; Complete Time: 12:22 zachariah 06/19 13:09 Order name: Knee Immobilizer; Complete Time: 14:38 zachariah Administered Medications: 13:16 Drug: HYDROmorphone IM 2 mg Route: IM; Site: left deltoid; ld1 13:16 Drug: Promethazine IM 25 mg Route: IM; Site: left deltoid; ld1 Disposition Summary: 06/19/22 13:51 Discharge Ordered Location: Home zachariah Problem: new zachariah Symptoms: have improved zachariah Condition: Fair zachariah Diagnosis - Fall on same level, unspecified zachariah - Other specified sprain of right wrist zachariah - Effusion, right knee zachariah - Pain in right knee zachariah - Unspecified cirrhosis of liver zachariah - Displaced bicondylar fracture of right tibia, initial encounter for closed fracture zachariah - mildly depressed Followup: zachariah - With: Private Physician - When: 1 - 2 days - Reason: Recheck today's complaints, Continuance of care, Re-evaluation by your physician Followup: zachariah - With: - When: 2 - 3 days - Reason: Recheck today's complaints, Re-evaluation by your physician Discharge Instructions: - Discharge Summary Sheet zachariah - Joint Pain zachariah - Arthritis zachariah - Cirrhosis zachariah - Musculoskeletal Pain zachariah - Acute Knee Pain, Adult zachariah - Tibial Plateau Fracture Treated With ORIF, Care After zachariah - Knee Effusion, [id number] zachariah - Arthritis, [id number] zachariah - Acute Knee Pain, Adult, [id number] zachariah - Joint Pain, [id number] zachariah Forms: - Medication Reconciliation Form zachariah - Thank You Letter zachariah - Antibiotic Education zachariah - Prescription Opioid Use zachariah Prescriptions: - acetaminophen-codeine 300-15 mg Oral tablet - take 2 tablet by ORAL route 4 times per day as needed for pain; 24 tablet; zachariah Refills: 0, Product Selection Permitted Signatures: Dispatcher [employer] Thaddeus Gant MD MD cha Calderon, Audri RN RN aa5 Kia Jones RN RN ld1 Corrections: (The following items were deleted from the chart) 11:38 11:14 Elbow Right 3 View+RAD.RAD.[email or web address] ordered. ED[facility] ED[facility] 14:38 13:09 Crutches ordered. zachariah ko1
[2022-06-19 14:44] VITALS: TEMP 97.3
[2022-06-19 14:45] VITALS: O2SAT 99
[2022-06-19 14:46] VITALS: BP 188/111
== END 2022-06-19 14:39 | disposition home or self-care (01) ==
LOC: ER 10:41
DX: S82.291A Other fracture of shaft of right tibia, initial encounter for closed fracture (principal); M25.461 Effusion, right knee; S63.591A Other specified sprain of right wrist, initial encounter; K74.60 Unspecified cirrhosis of liver; W18.30XA Fall on same level, unspecified, initial encounter; I10 Essential (primary) hypertension
CPT/HCPCS: 70450; 71250; 72125; 73700; 73502; 73030; 73110; 73562; 73610; 96372; 99284; J2550; J1170